=== PATIENT | male | born 1970 | race Caucasian/White ===

== ENCOUNTER 2017-11-12 13:29 | Outpatient (CLI) | payer OTHER ==
[2017-11-12] MEDS ORDERED: IOPAMIDOL-300 50 ML VIAL ONE (14:10)
[2017-11-12] MEDS ORDERED: IOPAMIDOL-300 100 ML VIAL ONE (14:10)
[2017-11-12 14:36] LABS: BASOPHILS # (AUTO) 0.1 10^3/uL (0.0-0.1); BASOPHILS % (AUTO) 0.5 %; EOSINOPHILS # (AUTO) 0.1 10^3/uL (0.0-0.7); EOSINOPHILS % (AUTO) 0.4 %; HGB - HEMOGLOBIN 15.3 g/dL (14.0-18.0); LYMPHOCYTES # (AUTO) 1.5 10^3/uL (1.5-3.5); LYMPHOCYTES % (AUTO) 10.9 %; MEAN CORPUSCULAR HGB CONC 34.5 g/dL (32.0-36.0); MEAN CORPUSCULAR VOLUME 83.9 fL (80.0-94.0); MEAN PLATELET VOLUME 8.2 fL (7.4-11.4); MONOCYTES # (AUTO) 1.3 10^3/uL (0.0-1.0); MONOCYTES % (AUTO) 9.1 %; NEUTROPHILS % (AUTO) 79.1 %; PLT - PLATELET COUNT 283 10^3/uL (130-450); RED BLOOD COUNT 5.29 10^6/uL (4.70-6.10); RED CELL DISTRIBUTION WIDTH 13.2 % (12.0-15.0)
[2017-11-12 14:50] LABS: ALBUMIN 4.2 g/dL (3.2-5.5); ALBUMIN/GLOBULIN RATIO 0.9 (1.0-2.2); CALCIUM 9.3 mg/dL (8.5-10.3); CREATININE 1.3 mg/dL (0.6-1.2); TOTAL PROTEIN 8.9 g/dL (6.7-8.2)
[2017-11-12] MEDS ORDERED: IOPAMIDOL-300 100 ML VIAL IVP ONE (16:09)
[2017-11-12] MEDS ORDERED: IOPAMIDOL-300 50 ML VIAL PO ONE (16:09)
--- NOTE | 2017-11-12 19:29 | CT Report ---
DATE OF SERVICE: 11/12/2017 CT ABDOMEN AND PELVIS WITH AND WITHOUT CONTRAST: 11/12/2017 CLINICAL INDICATION: Acute abdominal pain. TECHNIQUE: Axial CT images of the abdomen and pelvis were obtained prior to and following 100 mL Isovue 300 intravenously as well as oral contrast. In accordance with CT protocol optimization, one or more of the following dose reduction techniques were utilized for this exam: Automated exposure control, adjustment of mA and/or KV based on patient size, or use of iterative reconstructive technique. No previous CT is available for comparison. FINDINGS: Limited evaluation of the lung bases is unremarkable. ABDOMEN: The liver demonstrates diffuse decrease in attenuation, compatible with fatty infiltration. Postoperative changes of cholecystectomy are present. The spleen, pancreas, kidneys and adrenal glands are unremarkable. No bowel dilatation, free gas, or free fluid is present. No abdominal adenopathy is seen. PELVIS: There is inflammation around the mid sigmoid colon, compatible with diverticulitis. Immediately adjacent to the medial portion of the sigmoid colon, there is a 3.8 x 2.4 cm fluid collection, with a tiny focus of gas, compatible with a small abscess. No free fluid or pelvic adenopathy is seen. Osseous structures demonstrate mild degenerative changes. IMPRESSION: SIGMOID DIVERTICULITIS, WITH A 3.8 CM PERISIGMOID ABSCESS. CRITICAL RESULT: Results called to Dr. Jesus on 11/12/2017 at 1340 hours. TD: 11/12/2017 19:28
== END 2017-11-12 13:30 | disposition home or self-care (01) ==
LOC: DI 13:29
PROVIDERS: ATTEND Family Medicine
DX: K57.20 Diverticulitis of large intestine with perforation and abscess without bleeding (principal)
CPT/HCPCS: 36415; 74178; 80053; 85025

== ENCOUNTER 2017-11-12 15:44 | Emergency (ER) | payer OTHER ==
[2017-11-12] MEDS ORDERED: SODIUM CHLORIDE 0.9% 1,000 ML IV ONE (15:47)
[2017-11-12] MEDS ORDERED: PIPERACILLIN/TAZOBACTAM 3.375 GM in SODIUM CHLORIDE 0.9% MINIBAG 100 ML IV STA (17:18)
--- NOTE | 2017-11-12 17:19 | ED Physician Documentation ---
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 WBC [address] sowed diverticulitis with perf and 3.8 cm abscess sent to ER to be admitted i spoke to surgeon Dr Gonzalez who advised pt needs transfer for IR drainage Review of Systems Constitutional: denies: Fever Cardiac: denies: Chest pain / pressure Respiratory: denies: Dyspnea GI: reports: Abdominal Pain, Constipation Endocrine: denies: Easy bruising / bleeding Immunocompromised: denies: Immunocompromised PD PAST MEDICAL HISTORY - Past Medical History Past Medical History: Yes GI: Diverticulitis - Past Surgical History Past Surgical History: Yes General: Cholecystectomy - Present Medications Home Medications: Ambulatory Orders Medication Instructions Recorded Confirmed Losartan/Hydrochlorothiazide 1 tab PO DAILY 11/12/17 11/12/17 [Losartan-Hctz 100-12.5 mg Tab] - Allergies Allergies/Adverse Reactions: Allergies Allergy/AdvReac Type Severity Reaction Status Date / Time Penicillins Allergy Unknown Verified 11/12/17 16:17 - Social History Does the pt smoke?: No Smoking Status: Never smoker Does the pt drink ETOH?: Yes Does the pt have substance abuse?: No - POLST Patient has POLST: No PD ED PE NORMAL - Vitals Vital signs reviewed: Yes - Neck Neck: Supple, no meningeal sign - Cardiac Cardiac: RRR - Respiratory Respiratory: No respiratory distress, Clear bilaterally - Abdomen Abdomen: Soft, Other (TTP low mid abd with mild guarding) - Derm Derm: Normal color - Neuro Neuro: Alert and oriented X 3 Results - Vitals Vitals: Vital Signs - 24 hr 11/12/17 11/12/17 11/12/17 16:12 19:00 19:19 Temperature 37.0 C 37.0 C Heart Rate 110 H 91 93 Respiratory 16 18 16 Rate Blood Pressure 134/106 H 152/89 H 131/85 H O2 Saturation 99 100 99 Oxygen O2 Source Room air - Labs Labs: Laboratory Tests 11/12/17 17:24 Lactic Acid 0.9 - Rads (name of study) CT AP Radiology: See rad report (sigmoid diverticulitis with a 3.8 cm perisigmoid abscess and small free air) PD MEDICAL DECISION MAKING - ED course ED course: labs from today WBC 14 H/H plt 283 Chem 135/3.4/96/26/17/1.94 CT shows perforated sigmoid diverticultitis with small free air and a 3.8 cm abscess anterior and accessible to IR drain per our radiologist d/w surgery Dr Gonzalez wo rec transfer to [facility] where IR is available spoke to Dr More surgery and she accepts pt in transfer pt given invanz in ED s oneyda declines pain meds - states pain tolerable if he doesnt move or eat Departure - Departure Disposition: 02 Transfer Acute Care Hosp Clinical Impression: Diverticulitis of large intestine with abscess Qualifiers: Diverticulitis bleeding: unspecified bleeding status Qualified Code(s): K57.20 - Diverticulitis of large intestine with perforation and abscess without bleeding Condition: Good
[2017-11-12] MEDS ORDERED: ERTAPENEM 1 GM in SODIUM CHLORIDE 0.9% MINIBAG 100 ML IV STA (17:32)
[2017-11-12 19:21] VITALS: BP 131/85
== END 2017-11-12 20:00 | disposition short-term general hospital (02) ==
LOC: ED 15:44
DX: K57.20 Diverticulitis of large intestine with perforation and abscess without bleeding (principal); Z90.49 Acquired absence of other specified parts of digestive tract
CPT/HCPCS: 36415; 74178; 80053; 83605; 85025; 87040; 96361; 96365; 99283; 99284; J1335; Q9967

== ENCOUNTER 2017-11-12 20:04 | Outpatient (CLI) | payer OTHER | END 2017-11-12 20:05 | disposition short-term general hospital (02) | LOC: EMS 20:04 | PROVIDERS: ATTEND Surgery | DX: K57.20 Diverticulitis of large intestine with perforation and abscess without bleeding (principal) | CPT/HCPCS: A0170; A0425; A0428 ==

== ENCOUNTER 2018-05-27 07:13 | Outpatient (CLI) | payer OTHER ==
[2018-05-27 12:28] LABS: ALBUMIN 3.9 g/dL (3.2-5.5); ALBUMIN/GLOBULIN RATIO 1.1 (1.0-2.2); ALKALINE PHOSPHATASE 75 IU/L (42-121); ALT ALANINE AMINOTRANSFERASE 38 IU/L (10-60); AST ASPARTATE AMINOTRANSFERASE 33 IU/L (10-42); BUN - BLOOD UREA NITROGEN 19 mg/dL (6-20); CALCIUM 9.3 mg/dL (8.5-10.3); CARBON DIOXIDE - CO2 26 mmol/L (21-32); CHLORIDE 104 mmol/L (101-111); CHOL/HDL RATIO 4.2 (<5.0); CHOLESTEROL 168 mg/dL; CREATININE 1.2 mg/dL (0.6-1.2); GFR - MDRD 65 (>89); GLUCOSE 94 mg/dL (70-100); HDL CHOLESTEROL 40 mg/dL; LDL CHOLESTEROL,CALCULATED 83 mg/dL; LDL/HDL RATIO 2.1 (<3.6); SODIUM 138 mmol/L (135-145); TOTAL PROTEIN 7.4 g/dL (6.7-8.2); VLDL CHOLESTEROL 45 mg/dL
== END 2018-05-27 07:14 | disposition home or self-care (01) ==
LOC: LAB.WCP 07:13
PROVIDERS: ATTEND Family Medicine
DX: Z00.00 Encounter for general adult medical examination without abnormal findings (principal)
CPT/HCPCS: 36415; 80053; 80061; 83721; 84443

== ENCOUNTER 2019-05-29 08:00 | Outpatient (CLI) | payer OTHER ==
[2019-05-29 12:51] LABS: BASOPHILS # (AUTO) 0.1 10^3/uL (0.0-0.1); BASOPHILS % (AUTO) 0.9 %; EOSINOPHILS # (AUTO) 0.1 10^3/uL (0.0-0.7); EOSINOPHILS % (AUTO) 1.5 %; HGB - HEMOGLOBIN 14.7 g/dL (14.0-18.0); LYMPHOCYTES # (AUTO) 2.1 10^3/uL (1.5-3.5); LYMPHOCYTES % (AUTO) 26.7 %; MEAN CORPUSCULAR HEMOGLOBIN 29.1 pg (27.0-31.0); MEAN CORPUSCULAR HGB CONC 33.2 g/dL (32.0-36.0); MEAN CORPUSCULAR VOLUME 87.5 fL (80.0-94.0); MEAN PLATELET VOLUME 11.5 fL (7.4-11.4); MONOCYTES # (AUTO) 0.7 10^3/uL (0.0-1.0); MONOCYTES % (AUTO) 8.5 %; PLT - PLATELET COUNT 212 10^3/uL (130-450); RED BLOOD COUNT 5.06 10^6/uL (4.70-6.10); RED CELL DISTRIBUTION WIDTH 13.3 % (12.0-15.0)
[2019-05-29 13:25] LABS: ALBUMIN 3.9 g/dL (3.2-5.5); ALBUMIN/GLOBULIN RATIO 1.1 (1.0-2.2); ALKALINE PHOSPHATASE 76 IU/L (42-121); ALT ALANINE AMINOTRANSFERASE 48 IU/L (10-60); AST ASPARTATE AMINOTRANSFERASE 31 IU/L (10-42); BILIRUBIN,TOTAL 0.7 mg/dL (0.2-1.0); BUN - BLOOD UREA NITROGEN 21 mg/dL (6-20); CALCIUM 9.2 mg/dL (8.5-10.3); CARBON DIOXIDE - CO2 27 mmol/L (21-32); CHLORIDE 105 mmol/L (101-111); CHOL/HDL RATIO 4.5 (<5.0); CHOLESTEROL 166 mg/dL; CREATININE 1.1 mg/dL (0.6-1.2); GFR - MDRD 72 (>89); GLUCOSE 103 mg/dL (70-100); HDL CHOLESTEROL 37 mg/dL; LDL CHOLESTEROL,CALCULATED 93 mg/dL; LDL/HDL RATIO 2.5 (<3.6); SODIUM 140 mmol/L (135-145); TOTAL PROTEIN 7.5 g/dL (6.7-8.2); VLDL CHOLESTEROL 36 mg/dL
== END 2019-05-29 23:59 | disposition home or self-care (01) ==
LOC: LAB.WCP 08:00
PROVIDERS: ATTEND Family Medicine
DX: I10 Essential (primary) hypertension (principal); G47.30 Sleep apnea, unspecified; R53.83 Other fatigue; E66.9 Obesity, unspecified; E78.1 Pure hyperglyceridemia
CPT/HCPCS: 36415; 80053; 80061; 83721; 84443; 85025

== ENCOUNTER 2019-10-29 13:03 | Outpatient (CLI) | payer OTHER ==
--- NOTE | 2019-10-29 15:53 | CARDIAC PROCEDURE NOTE ---
DATE OF SERVICE: 10/29/2019 Physician: Joyce Porter MD, [facility] INDICATION: Chest pain, hypertension. CARDIAC RISK FACTORS: Morbid obesity, family history of heart disease, hypertension, hyperlipidemia. DESCRIPTION OF PROCEDURE: After signing informed consent, the patient underwent a Pelon-protocol treadmill stress test and Echo pre- and post-exercise and Definity contrast was used to improve Echo image quality. RESTING HEART RATE: 93. PEAK HEART RATE: 160 (92% predicted maximum heart rate for age). RESTING BLOOD PRESSURE: 158/86. PEAK BLOOD PRESSURE: 243/71. The patient exercised for 5 minutes and 50 seconds on a Pelon-protocol treadmill stress test. He achieved a peak heart rate of 160 (92% PMHR) and 7.1 METS. The patient reported 15-16/20 on the Mukesh scale of perceived exertion at peak. The patient described no chest pain, "grabbing feeling" or palpitations. He described mild to moderate shortness of breath at peak. Oxygen saturation was measured at 96-98% throughout the entire test, on room air. RESTING EKG: Normal sinus rhythm, RSR' in V1. EKG AT PEAK: No new ST-segment or T-wave changes. SUMMARY 1. Borderline abnormal resting EKG and resting heart rate of 93. 2. Fair exercise tolerance. 3. Excessive blood pressure response to exercise, despite taking both his Amlodipine and Losartan/HCTZ medications this morning. 4. No ischemic changes by EKG criteria developed during exercise stress. 5. This patient's cardiac risk based on the above: Low - Moderate. 6. Echo images reported separately. cc: Virgie Hardy PA-C TD: 10/29/2019 15:33 ANITA
[2019-11-02] MEDS ORDERED: PERFLUTREN LIPID MICROSPHERES 1.65 MG/1.5 ML VIAL IVP ONE (10:35)
== END 2019-10-29 13:04 | disposition home or self-care (01) ==
LOC: DI 13:03
PROVIDERS: ATTEND Physician Assistant
DX: R07.89 Other chest pain (principal); I10 Essential (primary) hypertension; R94.31 Abnormal electrocardiogram [ECG] [EKG]; E78.5 Hyperlipidemia, unspecified; E66.01 Morbid (severe) obesity due to excess calories; Z82.49 Family history of ischemic heart disease and other diseases of the circulatory system
CPT/HCPCS: 93350

== ENCOUNTER 2019-10-30 07:30 | Outpatient (CLI) | payer OTHER ==
[2020-01-29 13:20] LABS: ALBUMIN 4.2 g/dL (3.2-5.5); ALBUMIN/GLOBULIN RATIO 1.1 (1.0-2.2); BILIRUBIN,TOTAL 0.6 mg/dL (0.2-1.0); CALCIUM 9.4 mg/dL (8.5-10.3); CREATININE 1.2 mg/dL (0.6-1.2); MAGNESIUM 2.2 mg/dL (1.7-2.8); TOTAL PROTEIN 7.9 g/dL (6.7-8.2)
== END 2020-01-29 23:59 | disposition home or self-care (01) ==
LOC: LAB.WCP 07:30
PROVIDERS: ATTEND Physician Assistant
DX: R00.2 Palpitations (principal)
CPT/HCPCS: 36415; 80053; 83735; 84443

== ENCOUNTER 2021-02-17 08:00 | Outpatient (CLI) | payer OTHER ==
[2021-02-17 11:47] LABS: BASOPHILS # (AUTO) 0.1 10^3/uL (0.0-0.1); BASOPHILS % (AUTO) 0.8 %; EOSINOPHILS # (AUTO) 0.1 10^3/uL (0.0-0.7); EOSINOPHILS % (AUTO) 1.3 %; HCT - HEMATOCRIT 45.4 % (42.0-52.0); HGB - HEMOGLOBIN 15.1 g/dL (14.0-18.0); LYMPHOCYTES # (AUTO) 1.8 10^3/uL (1.5-3.5); LYMPHOCYTES % (AUTO) 25.4 %; MEAN CORPUSCULAR HEMOGLOBIN 29.7 pg (27.0-31.0); MEAN CORPUSCULAR HGB CONC 33.3 g/dL (32.0-36.0); MEAN CORPUSCULAR VOLUME 89.4 fL (80.0-94.0); MEAN PLATELET VOLUME 11.3 fL (7.4-11.4); MONOCYTES # (AUTO) 0.5 10^3/uL (0.0-1.0); MONOCYTES % (AUTO) 7.4 %; NEUTROPHILS # (AUTO) 4.6 10^3/uL (1.5-6.6); NEUTROPHILS % (AUTO) 64.8 %; PLT - PLATELET COUNT 236 10^3/uL (130-450); RED BLOOD COUNT 5.08 10^6/uL (4.70-6.10); RED CELL DISTRIBUTION WIDTH 12.9 % (12.0-15.0); WHITE BLOOD COUNT 7.1 x10^3/uL (4.8-10.8)
[2021-02-17 12:11] LABS: ALBUMIN 4.5 g/dL (3.2-5.5); ALBUMIN/GLOBULIN RATIO 1.3 (1.0-2.2); ALKALINE PHOSPHATASE 93 IU/L (42-121); ALT ALANINE AMINOTRANSFERASE 28 IU/L (10-60); AST ASPARTATE AMINOTRANSFERASE 21 IU/L (10-42); BILIRUBIN,TOTAL 0.9 mg/dL (0.2-1.0); BUN - BLOOD UREA NITROGEN 19 mg/dL (6-20); CALCIUM 9.6 mg/dL (8.5-10.3); CARBON DIOXIDE - CO2 27 mmol/L (21-32); CHLORIDE 104 mmol/L (101-111); CHOL/HDL RATIO 5.5 (<5.0); CHOLESTEROL 192 mg/dL; CREATININE 1.3 mg/dL (0.6-1.2); GFR - MDRD 59 (>89); GLUCOSE 98 mg/dL (70-100); HDL CHOLESTEROL 35 mg/dL; LDL CHOLESTEROL,CALCULATED 125 mg/dL; LDL/HDL RATIO 3.6 (<3.6); POTASSIUM 3.8 mmol/L (3.5-5.0); SODIUM 140 mmol/L (135-145); TOTAL PROTEIN 8.1 g/dL (6.7-8.2); TRIGLYCERIDES 159 mg/dL; VLDL CHOLESTEROL 32 mg/dL
[2021-02-17 12:16] LABS: THYROID STIMULATING HORMONE 4.17 uIU/mL (0.34-5.60)
== END 2021-02-17 23:59 | disposition home or self-care (01) ==
LOC: LAB.WCP 08:00
PROVIDERS: ATTEND Internal Medicine
DX: I10 Essential (primary) hypertension (principal); R00.2 Palpitations; E78.1 Pure hyperglyceridemia; Z12.5 Encounter for screening for malignant neoplasm of prostate; R53.83 Other fatigue
CPT/HCPCS: 36415; 80053; 80061; 83721; 84153; 84443; 85025

== ENCOUNTER 2021-02-24 17:17 | Outpatient (CLI) | payer OTHER | END 2021-02-24 17:18 | disposition home or self-care (01) | LOC: LAB.N 17:17 | PROVIDERS: ATTEND Internal Medicine | DX: Z01.84 Encounter for antibody response examination (principal); J06.9 Acute upper respiratory infection, unspecified | CPT/HCPCS: 36415; 81599; 86769 ==

== ENCOUNTER 2022-10-26 10:04 | Outpatient (CLI) | payer BC, OTHER ==
[2022-10-26 12:48] LABS: BASOPHILS # (AUTO) 0.1 10^3/uL (0.0-0.1); BASOPHILS % (AUTO) 0.7 %; EOSINOPHILS # (AUTO) 0.1 10^3/uL (0.0-0.7); EOSINOPHILS % (AUTO) 1.6 %; HCT - HEMATOCRIT 45.7 % (42.0-52.0); HGB - HEMOGLOBIN 15.4 g/dL (14.0-18.0); LYMPHOCYTES # (AUTO) 1.8 10^3/uL (1.5-3.5); LYMPHOCYTES % (AUTO) 21.7 %; MEAN CORPUSCULAR HEMOGLOBIN 29.7 pg (27.0-31.0); MEAN CORPUSCULAR HGB CONC 33.7 g/dL (32.0-36.0); MEAN CORPUSCULAR VOLUME 88.2 fL (80.0-94.0); MEAN PLATELET VOLUME 11.7 fL (7.4-11.4); MONOCYTES # (AUTO) 0.5 10^3/uL (0.0-1.0); MONOCYTES % (AUTO) 6.5 %; NEUTROPHILS # (AUTO) 5.8 10^3/uL (1.5-6.6); NEUTROPHILS % (AUTO) 69.1 %; PLT - PLATELET COUNT 253 10^3/uL (130-450); RED BLOOD COUNT 5.18 10^6/uL (4.70-6.10); RED CELL DISTRIBUTION WIDTH 12.9 % (12.0-15.0); WHITE BLOOD COUNT 8.4 x10^3/uL (4.8-10.8)
[2022-10-26 13:53] LABS: THYROID STIMULATING HORMONE 4.18 uIU/mL (0.34-5.60)
[2022-10-26 13:57] LABS: ALBUMIN 4.4 g/dL (3.2-5.5); ALBUMIN/GLOBULIN RATIO 1.2 (1.0-2.2); ALKALINE PHOSPHATASE 90 IU/L (42-121); ALT ALANINE AMINOTRANSFERASE 39 IU/L (10-60); AST ASPARTATE AMINOTRANSFERASE 24 IU/L (10-42); BUN - BLOOD UREA NITROGEN 21 mg/dL (6-20); CALCIUM 9.7 mg/dL (8.5-10.3); CARBON DIOXIDE - CO2 28 mmol/L (21-32); CHLORIDE 103 mmol/L (101-111); CHOL/HDL RATIO 5.1 (<5.0); CHOLESTEROL 190 mg/dL; CREATININE 1.1 mg/dL (0.6-1.2); GFR - MDRD 71 (>89); GLUCOSE 93 mg/dL (70-100); HDL CHOLESTEROL 37 mg/dL; LDL CHOLESTEROL,CALCULATED 106 mg/dL; LDL CHOLESTEROL,DIRECT 107 mg/dL; LDL/HDL RATIO 2.9 (<3.6); POTASSIUM 3.9 mmol/L (3.5-5.0); SODIUM 140 mmol/L (135-145); TRIGLYCERIDES 237 mg/dL; VLDL CHOLESTEROL 47 mg/dL
[2022-10-26 14:04] LABS: ESTIMATED AVERAGE GLUCOSE 105 mg/dL (70-100); HEMOGLOBIN A1c% 5.3 % (4.27-6.07)
== END 2022-10-26 10:05 | disposition home or self-care (01) ==
LOC: LAB.N 10:04
PROVIDERS: ATTEND Internal Medicine
DX: I10 Essential (primary) hypertension (principal); E78.1 Pure hyperglyceridemia; E53.8 Deficiency of other specified B group vitamins; Z12.5 Encounter for screening for malignant neoplasm of prostate; I49.1 Atrial premature depolarization
CPT/HCPCS: 36415; 80053; 80061; 82607; 83036; 83721; 84153; 84443; 85025

== ENCOUNTER 2023-01-28 15:24 | Outpatient (CLI) | payer BC ==
[2023-01-28 21:17] VITALS: BP 154/92
--- NOTE | 2023-01-28 21:17 | SLEEP CARE CONSULTATION ---
Information from patient questionnaire entered by Terri Varela. I have reviewed and concur with the information entered by Terri Varela. This document represents the service I personally performed and the decisions made by me, Jewel Salas MD, [facility]. History of Present Illness Service Date and Time: 01/28/2023 1524 Reason for Visit: New patient Chief Complaint: reports: Other (UPDATE) Usual bedtime: 10-11PM Time it takes to fall asleep: 5MIN Snores at night: Yes Observed to quit breathing while asleep: Yes Sleeps alone due to snoring: No Number of times waking at night: 2-3 Reasons for waking at night: reports: Other (NOISE LEAKY MASK) Toss, Turn, or Twitch while sleeping: No Recalls having dreams: Yes Usually gets out of bed at: 5 AM WEEKDAYS 6-8AM WEEKENDS Feels refreshed in the morning: Yes Morning headache: No Sleepy or fatigued during the day: Yes Ever fallen asleep while driving: Yes Takes day naps: Yes Dreams during day naps: Yes Prior sleep studies: Yes Additional HPI information: I had the pleasure of seeing Mr. Tucker today regarding obstructive sleep apnea- hypopnea. He was diagnosed here 15 years ago with severe obstructive sleep apnea-hypopnea. His AHI was 36.7, and js oxygen saturation, 83%. He was prescribed a CPAP machine and used it regularly until it broke. He now uses an [place] CPAP that he bought online. He said it is set between 6 cmH2O and something. He wears a full face mask. He would like to get a new machine because this one is about to break as well. He finds the treatment very beneficial. 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 Patient is and lives in [place]. Have you smoked in the past 12 months: No Alcohol use: Yes Alcohol amount and frequency: 1 DRINK 1-2X MONTHLY Caffeine use: Yes Caffeine amount and frequency: 1-2 COFFEES DAILY Family History Family history of sleep disordered breathing: Yes Allergies and Home Medications Known drug allergies: Yes ([facility] LISINOPRIL AMLODIPINE ) Drug allergies reviewed: Yes Home medication list reviewed: Yes Allergy and home medication list: Allergies Penicillins Allergy (Verified 01/25/23 11:35) Unknown Review of Systems Weight gain over past 5 years: 35 Cardiovascular: reports: high blood pressure, leg or foot swelling Respiratory: reports: shortness of breath Gastrointestinal: reports: difficulty swallowing, abdominal pain Urinary: denies: incontinence, frequency, urgency, impotence, other Neurological: denies: headaches, seizure, head trauma, disorientation, speech dysfunction, gait or balance problems, fainting or unconsciousness, other Psychiatric: denies: Attention Deficit Hyperactivity, anxiety, depression, mood disorder, claustrophobia, other Ear/Nose/Throat: reports: wisdom teeth removed Endocrine: denies: thyroid disease, history of goiter, sluggishness, too hot or cold, excessive thirst, increased appetite, increased urination, unexplained weakness, other Musculoskeletal: reports: joint pain, muscle pain or cramping Immunologic: reports: allergies to food or environment Physical Exam Vital signs obtained and entered by: TERRI Zhao MA Blood Pressure: 154/92 (LEFT ARM) Cuff size: long Heart Rate: 95 O2 Saturation: 98 Height: 5 ft 10 in Weight: 336 lb Body Mass Index: 48.2 BMI Classification: Morbidly Obese Neck circumference: 22.5 HEENT: No craniofacial malformation Nostrils: patent to airflow Mouth and throat: narrow oropharynx Soft palate: long Uvula visualization: 50% Mallampati Class II Tongue: enlarged in size with teeth bazan on lateral edges Tonsils: small Neck: normal w/o lymphadenopathy or thyromegaly Heart: regular rate and rhythm Lungs: clear bilaterally Extremities: no edema or clubbing Impression and Plan IMPRESSION: 1. Obstructive Sleep Apnea-Hypopnea Syndrome, severe, as previously diagnosed, The patient has good compliance, according to him. The effectiveness of the pressure setting is unknown because his CPAP cannot produce a compliance/efficacy report. In order to order him a new machine, a new sleep study will be required to document the sleep-related breathing disorder and its severity. The patient agreed to have another sleep study. Plan: 1. Schedule an in-laboratory polysomnography. 2. Try not to use his CPAP one night prior to the sleep study. 3. Try to lose weight. 4. Return for follow up after the sleep study. Follow up with Sleep Care in: 1-2 months Follow up recommended for: Weight management Visit Type: In Office Time Spent with Patient (minutes): 15 Provider Statement: I spent 100% of the Face to Face Visit with the patient with greater than 50% spent counseling the patient and coordination of care.
== END 2023-01-28 15:25 | disposition home or self-care (01) ==
LOC: SC 15:24
PROVIDERS: ATTEND Internal Medicine Pulmonary Disease
DX: G47.33 Obstructive sleep apnea (adult) (pediatric) (principal); E66.01 Morbid (severe) obesity due to excess calories; Z68.42 Body mass index [BMI] 45.0-49.9, adult
CPT/HCPCS: 99202; 99212

== ENCOUNTER 2023-05-27 15:12 | Outpatient (CLI) | payer BC ==
--- NOTE | 2023-05-28 08:23 | SLEEP CARE CONSULTATION ---
Information from patient questionnaire entered by Terri Varela. I have reviewed and concur with the information entered by Terri Varela. This document represents the service I personally performed and the decisions made by me, Jewel Salas MD, [facility]. History of Present Illness Service Date and Time: 05/27/2023 1512 Reason for follow up: first compliance Equipment type: CPAP (SD CARD NEEDED) Prior sleep studies: Yes HPI additional information: Mr. Canas was diagnosed to have severe obstructive sleep apnea-hypopnea syndrome and returns today for follow up of CPAP therapy. The patient purchased the device from [employer]. and was fitted with Vickers II nasal pillows. He uses the ResMed AirSense 11 nightly and all through the night. The compliance report shows that he uses the device 30 nights out of the past 30 nights, averaging 6 hours a night. He complains of no particular problem with the device such as soreness on the face, dry nose, epistaxis, nasal congestion or headache. He thinks that the pressure of 6 - 15 cmH2O is comfortable. On the CPAP therapy he notices improvement in his sleep quality, and that he wakes up feeling fresher in the morning and more awake/alert during the day. His notices no snore at all. [place] Sleepiness Scale score is 4. The average residual AHI is 1.5 ; and average time in large leak per day is 0 minutes a night. The 90th percentile pressure is 12.2 cmH2O. Sleep Study - Results Prior sleep studies: Yes Subjective Initial [place] Sleepiness Scale score: 13 (01/28/23) Current [place] Sleepiness Scale score: 4 (05/27/23) Allergies and Home Medications Drug allergies reviewed: Yes Home medication list reviewed: Yes Allergy and home medication list: Allergies Penicillins Allergy (Verified 05/24/23 10:49) Unknown Review of Systems Review of systems same as previous: Yes Physical Exam Vital signs obtained and entered by: TERRI Zhao MA Blood Pressure: 144/92 (LEFT ARM) Cuff size: long Heart Rate: 92 O2 Saturation: 97 Height: 5 ft 10 in Weight: 333 lb 6.4 oz Body Mass Index: 47.8 BMI Classification: Morbidly Obese Impression and Plan IMPRESSION: 1. Obstructive Sleep Apnea-Hypopnea Syndrome, severe (36.7 in 2007) with the patient continuing to do well on nasal CPAP therapy. He has excellent compliance and significant clinical benefits. The current pressure appears effective and comfortable. Overall, he is very satisfied with treatment, and plans to continue with it long-term. No adjustment is necessary today. PLAN: 1. Continue with autoCPAP set at 6 - 15 cm H2O. 2. Try to lose weight 3. Return in one year for follow up or earlier if there is any problem with the treatment. Follow up with Sleep Care in: 1 year Visit Type: In Office Time Spent with Patient (minutes): 15 Provider Statement: I spent 100% of the Face to Face Visit with the patient with greater than 50% spent counseling the patient and coordination of care.
[2023-05-28 08:33] VITALS: BP 144/92; O2SAT 97
== END 2023-05-27 15:13 | disposition home or self-care (01) ==
LOC: SC 15:12
PROVIDERS: ATTEND Internal Medicine Pulmonary Disease
DX: G47.33 Obstructive sleep apnea (adult) (pediatric) (principal); E66.01 Morbid (severe) obesity due to excess calories; Z68.42 Body mass index [BMI] 45.0-49.9, adult
CPT/HCPCS: 99212